=== PATIENT | female | born 1955 | race Caucasian/White ===

== ENCOUNTER → 2018-04-21 10:12 | Outpatient (CLI) | payer OTHER, SELFPAY | PROVIDERS: PCP Nurse Practitioner Family; Visit Provider Nurse Practitioner Family | DX: M85.88 Other specified disorders of bone density and structure, other site (principal); Z78.0 Asymptomatic menopausal state; Z82.62 Family history of osteoporosis; Z85.42 Personal history of malignant neoplasm of other parts of uterus | CPT/HCPCS: 77080 ==

== ENCOUNTER → 2018-09-13 14:59 | Outpatient (CLI) | payer OTHER, SELFPAY ==
--- NOTE | 2018-09-13 | DI.MG.S_ITS ---
BILATERAL DIGITAL SCREENING MAMMOGRAM 3D/2D WITH CAD: 09/13/2018 CLINICAL: Routine screening. Comparison is made to exams dated: 08/27/2017 mammogram, 08/26/2016 mammogram, and 07/17/2015 mammogram - [facility]. The tissue of both breasts is heterogeneously dense. This may lower the sensitivity of mammography. Current study was also evaluated with a Computer Aided Detection (CAD) system. There are benign post operative findings in the right breast. There also are benign biopsy clips in the left breast. No significant masses, calcifications, or other findings are seen in either breast. There has been no significant interval change. IMPRESSION: There is no mammographic evidence of malignancy. A 1 year screening mammogram is recommended. This exam was interpreted at Station ID: [id number]. NOTE: For mammograms, a report in lay terms will be sent to the patient. Approximately 15% of breast malignancies will not be visualized mammographically. In the management of a palpable breast mass, a negative mammogram must not discourage biopsy of a clinically suspicious lesion. Electronically Signed By: Ele cornell/fouzia:09/13/2018 16:03:11 letter sent: Normal Exam ACR BI-RADS Category 2: Benign Finding(s) 3342F
== END ==
PROVIDERS: PCP Nurse Practitioner Family; Visit Provider Nurse Practitioner Family
DX: Z12.31 Encounter for screening mammogram for malignant neoplasm of breast (principal)
CPT/HCPCS: 77063; 77067

== ENCOUNTER → 2019-09-16 11:11 | Outpatient (CLI) | payer MEDICARE, OTHER, SELFPAY ==
--- NOTE | 2019-09-16 | DI.MG.S_ITS ---
BILATERAL DIGITAL SCREENING MAMMOGRAM 3D/2D WITH CAD: 09/16/2019 CLINICAL: Routine screening. Family history of breast cancer. Comparison is made to exams dated: 09/13/2018 mammogram, 08/27/2017 mammogram, and 08/26/2016 mammogram - [facility]. The tissue of both breasts is heterogeneously dense. This may lower the sensitivity of mammography. Current study was also evaluated with a Computer Aided Detection (CAD) system. There is a focal asymmetry in the left breast at 10 o'clock anterior depth. No other significant masses, calcifications, or other findings are seen in either breast. IMPRESSION: INCOMPLETE: NEEDS ADDITIONAL IMAGING EVALUATION The focal asymmetry in the left breast is indeterminate. Additional views with possible ultrasound are recommended. This exam was interpreted at Station ID: [id number]. NOTE: For mammograms, a report in lay terms will be sent to the patient. Approximately 15% of breast malignancies will not be visualized mammographically. In the management of a palpable breast mass, a negative mammogram must not discourage biopsy of a clinically suspicious lesion. Electronically Signed By: Ele cornell/fouzia:09/28/2019 08:27:38 letter sent: Additional Imaging Needed ACR BI-RADS Category 0: Incomplete 3340F
== END ==
PROVIDERS: PCP Nurse Practitioner Family; Visit Provider Nurse Practitioner Family
DX: Z12.31 Encounter for screening mammogram for malignant neoplasm of breast (principal); Z80.3 Family history of malignant neoplasm of breast
CPT/HCPCS: 77063; 77067

== ENCOUNTER → 2020-12-06 08:19 | Outpatient (CLI) | payer MEDICARE, OTHER, SELFPAY ==
[2020-12-06] MEDS: COVID-19 VACC #1, MRNA(MOD) 100 MCG/0.5 ML VIAL IM (08:28)
== END ==
PROVIDERS: PCP Nurse Practitioner Family; Visit Provider Internal Medicine
DX: Z23 Encounter for immunization (principal)
CPT/HCPCS: 0011A; 91301

== ENCOUNTER → 2021-01-03 08:56 | Outpatient (CLI) | payer MEDICARE, OTHER, SELFPAY ==
[2021-01-03] MEDS: COVID-19 VACC #2, MRNA(MOD) 100 MCG/0.5 ML VIAL IM (09:04)
== END ==
PROVIDERS: PCP Nurse Practitioner Family; Visit Provider Internal Medicine
DX: Z23 Encounter for immunization (principal)
CPT/HCPCS: 0012A; 91301

== ENCOUNTER → 2021-04-03 14:06 | Outpatient (CLI) | payer MEDICARE, OTHER, SELFPAY ==
--- NOTE | 2021-04-03 14:10 | DI.RAD.S_ITS ---
PROCEDURE: XR DEXA AXIAL SKELETON INDICATIONS: Other specified disorders of bone density and stru COMPARISON: [facility], CR, XR DEXA AXIAL SKELETON, 04/21/2018, 10:52. FINDINGS: This blank DEXA report has been sent in error by the PACS system. The correct and complete report will be forthcoming in 1-2 days. Thank you for your patience and understanding. Dictated by: Rebecca Vogt MD, PhD on 04/04/2021 at 7:02 Approved by: Rebecca Vogt MD, PhD on 04/04/2021 at 7:02
== END ==
PROVIDERS: PCP Internal Medicine; Referring Provider Internal Medicine; Visit Provider Internal Medicine
DX: M85.88 Other specified disorders of bone density and structure, other site (principal); Z78.0 Asymptomatic menopausal state; Z90.722 Acquired absence of ovaries, bilateral; Z85.42 Personal history of malignant neoplasm of other parts of uterus; Z82.62 Family history of osteoporosis
CPT/HCPCS: 77080

== ENCOUNTER → 2021-07-08 15:33 | Outpatient (CLI) | payer MEDICARE, OTHER, SELFPAY ==
--- NOTE | 2021-07-08 | DI.RAD.S_ITS ---
PROCEDURE: XR FOOT RT MIN 3V INDICATIONS: RIGHT GREAT TOE INJURY TECHNIQUE: 3 views of the foot were acquired. COMPARISON: None. FINDINGS: Bones: Slightly comminuted intra-articular fracture involving 1st proximal phalangeal head and neck is seen with fracture line extending to 1st interphalangeal joint space and dorsal displacement of the fractured fragment. Moderate 1st MTP joint and interphalangeal joint osteoarthritic changes are seen. Well-defined plantar calcaneal enthesophyte is noted. No suspicious bony lesions. Soft tissues: No tibiotalar joint effusion. Achilles tendon appears normal. IMPRESSION: Slightly comminuted and displaced intra-articular fracture of 1st proximal phalangeal head and neck as above. Dictated by: Dominick Cao M.D. on 07/08/2021 at 16:40 Approved by: Dominick Cao M.D. on 07/08/2021 at 16:41
== END ==
PROVIDERS: PCP Internal Medicine; Referring Provider Internal Medicine; Visit Provider Internal Medicine
DX: S92.411A Displaced fracture of proximal phalanx of right great toe, initial encounter for closed fracture (principal); X58.XXXA Exposure to other specified factors, initial encounter
CPT/HCPCS: 73630

== ENCOUNTER → 2023-02-17 15:39 | Outpatient (CLI) | payer MEDICARE, OTHER, SELFPAY ==
--- NOTE | 2023-02-17 | DI.RAD.S_ITS ---
PROCEDURE: XR CHEST 2V INDICATIONS: left scapular pain TECHNIQUE: 2 views of the chest were acquired. COMPARISON: None. FINDINGS: Surgical changes and devices: None. Lungs and pleura: Lungs are clear. No pleural effusions or pneumothorax. Mediastinum: Mediastinal contours are normal. Heart size is normal. Bones and chest wall: No suspicious bony abnormalities. Soft tissues appear unremarkable. IMPRESSION: No acute cardiopulmonary disease. Dictated by: Eric Quintana RR Interpreted: Joshua Casey MD on 02/17/2023 at 15:51 Transcribed by: ATA on 02/17/2023 at 15:51 Approved by: Joshua Casey M.D. on 02/17/2023 at 16:36
== END ==
PROVIDERS: PCP Internal Medicine; Referring Provider Internal Medicine; Visit Provider Internal Medicine
DX: M89.8X1 Other specified disorders of bone, shoulder (principal); M25.512 Pain in left shoulder
CPT/HCPCS: 71046

== ENCOUNTER → 2023-05-07 14:15 | Outpatient (CLI) | payer MEDICARE, OTHER, SELFPAY ==
--- NOTE | 2023-05-07 14:16 | DI.RAD.S_ITS ---
Bone Density Report Name: TIERNEY ARRINGTON Age: 67 Sex: Female Ethnicity: White Date of : 1955 Indication: osteopenia; Referring Provider: CURTIS KLEIN Study: Bone densitometry was performed. Exam Date: May 07, 2023 Accession number: [id number] Bone Density: Region BMD T-score Z-score Classification AP Spine(L1-L4) 0.820 -2.1 0.0 Osteopenia Femoral Neck (Left) 0.783 -0.6 1.1 Normal Total Hip (Left) 0.915 -0.2 1.2 Normal Femoral Neck (Right) 0.804 -0.4 1.3 Normal Total Hip (Right) 0.909 -0.3 1.2 Normal Total Hip Mean 0.912 -0.3 1.2 Normal World Health Organization criteria for BMD impression classify patients as: Normal (T-score at or above -1.0), Osteopenia (T-score between -1.0 and -2.5), or Osteoporosis (T-score at or below -2.5). 10-year Fracture Risk(1): Major Osteoporotic Fracture 8.0% Hip Fracture 0.6% Reported Risk Factors: [place] (), Neck BMD=0.783, BMI=26.7 (1) FRAX(R) Version 3.08. Fracture probability calculated for an untreated patient. Fracture probability may be lower if the patient has received treatment. Previous Exams: -- Region Exam Age BMD T-score BMD Change BMD Change Date g/cm2 vs Baseline vs Previous -- AP Spine (L1-L4) 05/07/2023 67 0.820 -2.1 0.016 (2.0%)# 0.016 (2.0%)# 04/03/2021 65 0.804 -2.2 Total Hip(Left) 05/07/2023 67 0.915 -0.2 0.007 (0.7%)# 0.007 (0.7%)# 04/03/2021 65 0.908 -0.3 Total Hip(Right) 05/07/2023 67 0.909 -0.3 -0.009 (-1.0%)# -0.009 (-1.0%)# 04/03/2021 65 0.918 -0.2 -- *Denotes significance at 95% confidence level, LSC for AP Spine = 0.022 g/cm2, LSC for Total Hip = 0.027 g/cm2 # Denotes dissimilar scan types or analysis methods Impression: The patient has low bone mass, based on the Total Spine T-score. The patient has an estimated ten-year risk of hip fracture of 0.6% and an estimated ten-year risk of major fracture of 8%, based on the WHO FRAX algorithm. No significant bone loss was observed. Discussion: BONE DENSITY IS LOW AT ONE OR MORE SKELETAL SITES. This patient's lowest T-score is low at one or more skeletal sites. It meets the World Health Organization's (WHO) criteria for low bone mass (T-score between -1.0 and -2.5). The patient's 10-year risk of fracture as calculated by FRAX is less than the threshold where pharmacological therapy is recommended by the National Osteoporosis Foundation (NOF). However, all treatment decisions require clinical judgment and consideration of individual patient factors, including patient preferences, comorbidities, previous drug use, risk factors not captured in the FRAX model (e.g., frailty, falls, vitamin D deficiency, increased bone turnover, interval significant decline in bone density) and possible under or overestimation of fracture risk by FRAX. The patient should follow a healthful lifestyle (good nutrition with adequate calcium and vitamin D, and appropriate weight-bearing exercise). Follow-Up: Consider repeating this study in 2 to 3 years to reassess this patient's status, or sooner if there is some new clinical indication. Reported by: KAY NORTH M.D. on 05/07/2023 2:44:00 PM.
== END ==
PROVIDERS: PCP Internal Medicine; Referring Provider Internal Medicine; Visit Provider Internal Medicine
DX: M85.88 Other specified disorders of bone density and structure, other site (principal); Z78.0 Asymptomatic menopausal state
CPT/HCPCS: 77080

== ENCOUNTER → 2024-07-18 15:46 | Outpatient (CLI) | payer MEDICARE, OTHER, SELFPAY ==
--- NOTE | 2024-07-18 15:48 | DI.RAD.S_ITS ---
PROCEDURE: XR FOOT RT MIN 3V INDICATIONS: FOOT PAIN TECHNIQUE: 3 views of the foot were acquired. COMPARISON: [facility], , XR FOOT RT MIN 3V, 07/08/2021, 15:31. FINDINGS: Bones: No fractures or dislocations. No suspicious bony lesions. 1st MTP joint space narrowing with osteophytosis. Plantar calcaneal enthesophyte. Soft tissues: No tibiotalar joint effusion. Achilles tendon appears normal. 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 This has slightly progressed from prior. Dictated by: Joshua Casey M.D. on 07/18/2024 at 17:11 Approved by: Joshua Casey M.D. on 07/18/2024 at 17:12
== END ==
LOC: RAD 15:47
PROVIDERS: PCP Internal Medicine; Referring Provider Internal Medicine; Visit Provider Internal Medicine
DX: S99.921A Unspecified injury of right foot, initial encounter (principal); M19.071 Primary osteoarthritis, right ankle and foot; X58.XXXA Exposure to other specified factors, initial encounter
CPT/HCPCS: 73630

== ENCOUNTER → 2025-10-11 | Outpatient (CLI) | payer MEDICARE, OTHER, SELFPAY ==
--- NOTE | 2025-10-11 09:32 | DI.MG.S_ITS ---
MM diagnostic mammo BI: 10/11/2025. BI-RADS: 1 CLINICAL: 70-year old female for bilateral diagnostic mammogram. Tyrer-Cuzick lifetime risk of 11.4%. No personal or first-degree family history of breast cancer. Current reported family history of breast cancer: maternal aunt. The patient reports nonfocal inferior pain upon palpation (1 month) in the left breast and a resolved left palpable abnormality. The patient had prior bilateral breast biopsies. PRIOR EXAMS 12/22/2024, 12/15/2023, 11/13/2022, 10/24/2021. MAMMOGRAPHY TECHNIQUE: 2D and 3D (tomosynthesis) digital mammographic views obtained, with additional images as needed for full coverage. Current study was also evaluated with a Computer Aided Detection (CAD) system. DENSITY C. The breasts are heterogeneously dense, which may obscure small masses. MAMMOGRAPHY FINDINGS Bilateral: No suspicious mass, asymmetry, microcalcification, or other abnormality seen. IMPRESSION: * No evidence of malignancy. RECOMMENDATIONS Left * Non-focal symptoms such as pain are typically benign. Clinical follow-up is recommended, and further management of these symptoms should be based on the results of clinical evaluation. If symptoms persist or become more focal in nature, further clinical evaluation should be considered. Bilateral * Annual screening mammography. COMMENTS: Findings and recommendations were conveyed to the patient during today's evaluation. OVERALL ASSESSMENT CATEGORY BI-RADS-1: Negative. The [employer] recommends annual screening mammography beginning at age 40 for women with average risk of breast cancer. ELECTRONICALLY SIGNED: Stephanie Garcias M.D. on 10/11/2025 at 11:23:54 AM PT Interpreting Station ID: [id number]
== END ==
LOC: MAMMO 09:31
PROVIDERS: PCP Family Medicine; Referring Provider Family Medicine; Visit Provider Family Medicine
DX: N64.4 Mastodynia (principal); N63.0 Unspecified lump in unspecified breast; R92.333 Mammographic heterogeneous density, bilateral breasts; Z80.3 Family history of malignant neoplasm of breast
CPT/HCPCS: 77066; G0279